=== PATIENT | female | born 1965 | race Caucasian/White ===

== ENCOUNTER 2017-01-16 17:41 | Emergency (ER) | payer OTHER ==
[2017-01-16 17:52] VITALS: BP 129/77; PULSE 55; RESP 16; TEMP 98.4; O2SAT 97
--- NOTE | 2017-01-16 17:54 | EDPHY ---
H & P Stated Complaint: FELL HIKING 01/07 HEALING ABRASIONS BOTH KNEES, R SIDED CHEST PAIN HPI/ROS: HPI CHIEF COMPLAINT: right-sided rib pain HISTORY OF PRESENT ILLNESS: this patient very pleasant 51-year-old female denies any significant medical history except for osteoporosis, she took a mechanical trip and fall on January 07 or approximately 9 days ago she sustained abrasions to bilateral knees right arm pain. Over the past weekend she noticed some right anterior chest wall pain worse with right upper extremity movement as well as worse with deep inspiration. She denies any shortness of breath, hemoptysis, productive cough fever. The pain is reproducible on anterior chest wall exam. Exquisite tenderness over the right anterior chest wall superior to her breast. Denies recurrent trauma. She thinks the pain may be delayed from her fall 9 days ago. Past Medical History: osteoporosis Past Surgical History: no significant surgical history Social History: denies daily use of drugs alcohol tobacco products Family History: noncontributory ROS REVIEW OF SYSTEMS: A comprehensive 10 point review of systems is otherwise negative aside from elements mentioned in the history of present illness. Exam Constitutional appears well nontoxic triage nursing summary reviewed, vital signs reviewed, awake/alert. Eyes normal conjunctivae and sclera, EOMI, PERRLA. HENT normal inspection, atraumatic, moist mucus membranes, no epistaxis, neck supple/ no meningismus, no raccoon eyes. Respiratory clear to auscultation bilaterally, normal breath sounds, no respiratory distress, no wheezing. Cardiovascular chest wall: right-sided anterior: tender palpation exquisitely, no crepitus, no flail chest, no ecchymosis, no rash, reproducible on exam. rate normal, regular rhythm, no murmur, no edema, distal pulses normal. Gastrointestinal soft, non-tender, no rebound, no guarding, normal bowel sounds, no distension, no pulsatile mass. Genitourinary no CVA tenderness. Musculoskeletal no midline vertebral tenderness, full range of motion, no calf swelling, no tenderness of extremities, no meningismus, good pulses, neurovascularly intact. Skin pink, warm, & dry, no rash, skin atraumatic. Neurologic awake, alert and oriented x 3, AAOx3, moves all 4 extremities equally, motor intact, sensory intact, CN II-XII intact, normal cerebellar, normal vision, normal speech. Psychiatric normal mood/affect. Heme/Lymph/Immune no lymphadenopathy. Differential Diagnosis: Includes but is not limited to in a particular order chest wall contusion, rib fractures, pneumothorax, multiple contusions Medical Decision Making: plan for this patient x-ray two view and rib series. Rule out pneumothorax or significant rib fractures. I think pulmonary embolism is unlikely given presentation clinical scenario as well as reproducible tenderness on exam. Re-evaluation: Source: Patient - Personal History LMP (Females 10-55): Post Menopausal Current Tetanus Diphtheria and Acellular Pertussis (TDAP): Yes Tetanus Vaccine Date: < 10 YEARS - Medical/Surgical History Hx Asthma: No Hx Chronic Respiratory Disease: No Hx Diabetes: No Hx Cardiac Disease: No Hx Renal Disease: No Hx Cirrhosis: No Hx Alcoholism: No Hx HIV/AIDS: No Hx Splenectomy or Spleen Trauma: No Other PMH: Breast aug - Social History Smoking Status: Never smoked Constitutional: Initial Vital Signs Temperature (C) 36.9 C 01/16/17 17:50 Heart Rate 55 L 01/16/17 17:50 Respiratory Rate 16 01/16/17 17:50 Blood Pressure 129/77 H 01/16/17 17:50 O2 Sat (%) 97 01/16/17 17:50 O2 Delivery Mode Room Air Allergies/Adverse Reactions: No Known Allergies Allergy (Unverified 01/16/17 17:53) Home Medications: Medication Instructions Recorded Ibuprofen [Motrin (*)] 800 mg PO Q6-8PRN #14 tab 01/16/17 No Known Home Meds 01/16/17 Departure - Departure Disposition: Home, Routine, Self-Care Clinical Impression: Chest wall contusion Qualifiers: Encounter type: initial encounter Laterality: right Qualified Code(s): S20.211A - Contusion of right front wall of thorax, initial encounter Condition: Good Instructions: Chest Wall Pain (ED) Additional Instructions: 1. I recommend you ice your anterior chest wall. 2. Take anti-inflammatory pain medicine like ibuprofen for pain control. 3. Return emergency room if he develops worsening pain questions or concerns. Referrals: Corina Quiroga PA [Primary Care Provider] - As per Instructions Prescriptions: Ibuprofen [Motrin (*)] 800 mg PO Q6-8PRN #14 tab
== END 2017-01-16 18:40 | disposition home or self-care (01) ==
LOC: CED 17:41
DX: S20.211A Contusion of right front wall of thorax, initial encounter (principal); W01.0XXA Fall on same level from slipping, tripping and stumbling without subsequent striking against object, initial encounter; Y99.8 Other external cause status; Y93.01 Activity, walking, marching and hiking
CPT/HCPCS: 71101-PO